=== PATIENT | male | born 1955 | race Caucasian/White ===

== ENCOUNTER 2017-01-23 23:12 | Inpatient (IN) ==
--- NOTE | 2017-01-23 23:41 | Emergency Department Report ---
Lower Extremity Injury HPI - General Chief Complaint: Extremity Injury, Lower Stated Complaint: Fall/L Ankle Injury Time Seen by Provider: 01/23/17 23:40 Source: patient Mode of arrival: ambulatory Limitations: no limitations - History of Present Illness HPI Narrative: Patient presents to the ED for evaluation of bilateral ankle pain and swelling, L > R, that began after he fell down the stairs about an hour ago. Pt states he was carrying a child downstairs and tripped, twisting both ankles in the process. He sustained a left ankle inversion injury and right ankle eversion injury. Pt can bear weight on his right ankle, but is unable to bear any weight on the left ankle. Treatments prior to arrival: NSAIDS - Related Data Home Medications Medication Instructions Recorded Confirmed Omeprazole 40 mg PO DAILY 01/24/17 01/24/17 Simvastatin 20 mg PO DAILY 01/24/17 01/24/17 Allergies Allergy/AdvReac Type Severity Reaction Status Date / Time No Known Allergies Allergy Verified 01/24/17 00:25 Review of Systems All systems: reviewed and negative except as stated PFS Patient Stated Medical History Gastroesophageal Reflux Yes Disease HLD GERD Surgical History: colonoscopy - Social History Smoking status: Never smoker Substance use type: does not use Alcohol intake frequency: does not drink Physical Exam - Limitations Limitations: no limitations - General General appearance: alert, in no apparent distress - Normal Exams: Head:: Normocephalic without trauma Neck:: Full range of motion, without adenopathy, JVD, bruits or thyromegaly Chest/Respirations:: Clear all cee, with good airflow, and symmetry bilaterally Cardiovascular:: Regular rate and rhythm, without murmur or gallop, Pulses 2+ all extremities, capillary refill, <2 seconds all extremities Abdomen:: Bowel sounds positive, soft, non-tender, non-distended, no hepatosplenomegaly, masses or bruits noted Neurological:: Patient is alert, and oriented, cranial nerves, motor/sensory/ cerebellar, exams w/o gross deficits, to observation Psychiatric:: Patient exhibits, appropriate attention, emotion and affect - Expanded Lower Extremity Exam Ankle exam: Present: tenderness (Left ankle TTP over both lateral and medial malleolus. Right ankle TTP over lateral malleolus), tenderness over talofibular lig (left ankle), other (decreased ROM all planes in bilateral ankles. neurovascularly intact) 1 - large amount of edema 2 - moderate amount of edema Course Vital Signs Temperature 98.4 F 01/23/17 23:38 Pulse Rate 77 01/23/17 23:38 Respiratory Rate 20 01/23/17 23:38 Blood Pressure 130/86 01/23/17 23:38 Pulse Oximetry 94 01/23/17 23:38 Temperature 98.4 F 01/23/17 23:38 Pulse Rate 77 01/23/17 23:38 Respiratory Rate 20 01/23/17 23:38 Blood Pressure 130/86 01/23/17 23:38 Pulse Oximetry 94 01/23/17 23:38 Extremity Injury, Lower - MDM Narrative Medical decision making narrative: Pt declines medication for pain at this time. x-ray left ankle - distal fibular fracture with 3 mm displacement x-ray right ankle - distal fibula fracture with no displacement Case is discussed with carina Ziegler, we will admit the patient to Dr. Sahni's service, evaluation and possible surgical fixation in the morning. After evaluation and results, patient is accepting of pain medication at this time, given Dilaudid and Zofran IV Disposition Clinical Impression: Fracture of distal end of fibula Qualifiers: Encounter type: initial encounter Fracture type: closed Fracture morphology: other fracture Laterality: unspecified laterality Qualified Code(s): S82.839A - Other fracture of upper and lower end of unspecified fibula, initial encounter for closed fracture Fracture of distal fibula Qualifiers: Encounter type: initial encounter Fracture type: closed Fracture morphology: other fracture Laterality: unspecified laterality Qualified Code(s): S82.839A - Other fracture of upper and lower end of unspecified fibula, initial encounter for closed fracture Disposition: 02 To OBS [facility] [place] Condition: Improved Prescriptions: No Action Simvastatin 20 mg PO DAILY Omeprazole 40 mg PO DAILY Referrals: Kody Villalobos MD [Family Provider] - - Seen By: physician
[2017-01-24] MEDS ORDERED: HYDROMORPHONE 2 MG/ML INJECTION IVP PRN (00:38)
[2017-01-24] MEDS ORDERED: ONDANSETRON 4 MG/2 ML INJECTION IVP PRN ×3 (00:39→15:22)
[2017-01-24] MEDS: NS 1,000 ML IV SCH ×3 (01:45→15:41)
--- NOTE | 2017-01-24 08:11 | XRay Report ---
Indication: bilateral ankle rolled, pain, swelling PROCEDURE: XR ankle BI 2V: Encounter: Initial Comparison: None Findings: Right ankle: No acute fracture or dislocation. Moderate lateral soft tissue swelling. Evidence of old trauma to the medial malleolus mortise is symmetric and the talar dome intact. Left ankle spiral minimally displaced fracture of the distal fibula seen on the mortise view. No additional acute fracture. No dislocation.. Moderate lateral soft tissue swelling. Impression: Right ankle: No acute osseous abnormality. Left ankle: Closed post traumatic distal fibular fracture. .
--- NOTE | 2017-01-24 08:35 | Orthopedic History & Physical ---
Orthopedic HPI - HPI Comments Onur is very pleasant and healthy 61yo male who slipped on some steps last night at his home. He was carrying his 6yo child when he fell. He was able to bear wt on the right ankle but was unable to bear wt on the left. He was seen in ER and found to have a displaced fracture of the left distal fibula with some medial widening. The right ankle is painful, swollen and has some bruising present. CT of the ankle is pending this AM. 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 He is generally healthy, doesn't smoke and is very active. Takes some medicine for GERD prn. PFSH Patient Stated Medical History Gastroesophageal Reflux Yes Disease Surgical History: colonoscopy - Social History Smoking status: Never smoker Household members: spouse, children Current occupational status: employed Current occupation: Teacher at [employer]. Does patient use chewing tobacco?: No Review of Systems - Constitutional Constitutional: Absent: chills, fever(s) - EENT Ears, nose, mouth, throat: Absent: headaches, head injury - Cardiovascular Cardiovascular: Absent: chest pain, syncope - Respiratory Respiratory: Absent: cough, dyspnea - Gastrointestinal Gastrointestinal: Absent: abdominal pain - Musculoskeletal Musculoskeletal: Present: as per HPI - Integumentary/Breasts Integumentary: Present: wounds (Left hand was scratched by a cat 2-3 days ago. Cat checked for rabies and was neg.) - Neurological Neurological: Absent: numbness, weakness, tingling Medications Home Medications Medication Instructions Recorded Confirmed Type Omeprazole 40 mg PO DAILY 01/24/17 01/24/17 History Simvastatin 20 mg PO DAILY 01/24/17 01/24/17 History Allergies Allergy/AdvReac Type Severity Reaction Status Date / Time No Known Allergies Allergy Verified 01/24/17 00:25 Orthopedic Exam Vital signs: Temperature 98.4 F 01/24/17 01:16 Pulse Rate 77 01/24/17 01:16 Respiratory Rate 20 01/24/17 01:16 Blood Pressure 130/86 01/24/17 01:16 Pulse Oximetry 94 01/24/17 01:16 Oxygen Delivery Method Room Air - Constitutional General Appearance: Present: alert, no acute distress - Respiratory Exam Present: non-labored - Extremities Exam Present: pulses intact, normal capillary refill - Detailed Lower Extremity Exam Ankle: Bilateral swelling, Bilateral tenderness (Med and Lat on the right , Lat on the left.), Bilateral wound (Small abrasion lateral mallelous on the right. ) Foot/Toes: Bilateral normal inspection - Integumentary Exam Present: pink, warm, dry, bruising (Medial mallelous on right ankle.), other ( Small cat scratches on Left thumb. Volar and dorsal surfaces. Does not appear infected. No pain with ROM.) - Neurological Exam Present: intact to light touch, no deficits - Psychiatric Exam Present: alert, normal affect Orthopedic Assessment and Plan (1) Closed fracture of left distal fibula Status: Acute Qualifiers: Encounter type: initial encounter Assessment and Plan: The left ankle has a distal fibula fx with medial space widening. This is best treated with ORIF. I discussed the injury and surgical plan with Ruben. Dr Sahni will meet with him and discuss risk vs benefits and possible complications. Pt will need to be non wt bearing with this injury. Plan ORIF left ankle later today. The right ankle is swollen and has some bruising/tenderness. Xrays are questionably for fx. Will get CT of the right ankle this AM. Will do exam of this ankle when his is under anesthesia. Due to the fact he has multiple limbs / joints involved and will need surgical fixation of at least one, I will change him to inpatient status. (2) Acute right ankle pain Status: Acute (3) Fracture of distal fibula Status: Acute Qualifiers: Encounter type: initial encounter Fracture type: closed Fracture morphology: other fracture Laterality: unspecified laterality Qualified Code (s): S82.839A - Other fracture of upper and lower end of unspecified fibula, initial encounter for closed fracture Hospital Course Summary Disclaimer: The visit summary below is not to be considered part of the above Progress Note.
[2017-01-24 10:59] VITALS: BMI 25.5
[2017-01-24] MEDS: LR 1,000 ML IV SCH ×2 (11:13→14:53)
--- NOTE | 2017-01-24 11:18 | Anesthesia Preoperative Report ---
Anesthesia Preoperative Record - Date and Time Date: 01/24/17 Preoperative Diagnosis: Bilateral distal fibula fractures NPO Since Date: 01/23/17 NPO Since Time: 22:00 Allergies/Adverse Reactions: Allergies Allergy/AdvReac Type Severity Reaction Status Date / Time No Known Allergies Allergy Verified 01/24/17 00:25 - Vital Signs Vital Signs: Temperature 96.7 F L 01/24/17 08:00 Pulse Rate 61 01/24/17 08:00 Respiratory Rate 16 01/24/17 08:00 Blood Pressure 147/71 H 01/24/17 08:00 Pulse Oximetry 97 01/24/17 08:00 Height and Weight: Height 6 ft Weight 85.5 kg Body Mass Index 25.5 - Medications Inpatient Medications: Current Medications Hydromorphone HCl (Dilaudid) 0.5 mg IVP Q3H PRN PRN Reason: Pain Sodium Chloride (Normal Saline) 1,000 mls @ 75 mls/hr IV .[id number] JHON Last Infusion: 01/24/17 11:14 Dose: Infused Lactated Ringer's (Lactated Ringers) 1,000 mls @ 50 mls/hr IV .Q20H JHON Last Admin: 01/24/17 11:13 Dose: 50 mls/hr Ondansetron HCl (Zofran) 4 mg IVP Q6H PRN PRN Reason: Nausea &/or vomiting Home Medications: Home Medications Medication Instructions Recorded Confirmed Type Omeprazole 40 mg PO DAILY 01/24/17 01/24/17 History Simvastatin 20 mg PO DAILY 01/24/17 01/24/17 History Is Patient on Beta Bharti?: No - Medical History Respiratory: DENIES: Asthma, Sleep Apnea Cardiovascular: DENIES: Abnormal EKG, Angina, Coronary Artery Disease, Heart Murmur, Hypertension Gastrointestional: DENIES: Gastroesophageal Reflux Disease Renal/Endocrine: DENIES: Diabetes Mellitus Type 2 Other History: DENIES: Anesthesia Reactions - Social History Smoking Status: Never smoker Hx Chewing Tobacco Use: No Substance Use Type: does not use - Pertinent Findings EKG Rhythm: Normal Sinus Rhythm - Physical Exam Respiratory Exam: Present: lungs clear Cardiovascular Exam: Present: regular rate and rhythm - Airway Assessment Mallampati Score: II TMD: 3 Fingerbreadths Neck Extension: good Overall Assessment: no airway concerns - ASA ASA Score: 2 - Plan Anesthesia: General TIVA, Regional Block Peripheral Nerve Block: Popliteal-Left - Discussion Discussion: Discussed risks/options/alternatives of anesthesia and questions answered. Patient consents. Nursing pain assessment noted. Attestation Statement: Prior to the delivery of any anesthetic medication, I examined the patient, developed the plan, obtained the patient's consent and discussed the risk and benefits of the procedure with the patient/guardian. - Additional Information Seen by Anesthesia: Yes
[2017-01-24] MEDS ORDERED: MIDAZOLAM 2mg/2ml INJECTION IVP ONE (11:22)
[2017-01-24] MEDS ORDERED: FentaNYL 100 MCG/2 ML INJECTION IVP PRN (11:24)
[2017-01-24] MEDS ORDERED: ROPIVACAINE 0.5% (5mg/ml) 30ml INJ ONE (11:31)
--- NOTE | 2017-01-24 11:58 | Anesthesia Procedure Note ---
Peripheral Nerve Blockade - Procedure Physician: Asael Sahni MD Date: 01/24/17 Surgical Procedure: Left ankle ORIF Discussion: Discussed risks/options/alternatives of anesthesia and questions answered. Patient consents. Nursing pain assessment noted. Block Start: 11:43 Block Stop: 11:48 Blocked Employed: [employer] Indication: Post-Operative Pain Approach: Left Side Confirmed Position: RLD Patient: Consent, Risks/Benefits Discussed, Informed, Post Block Act. Discussed IV Sedation: Yes Midazolam (mg): 2 Fentanyl (mg): 50 Initial Vital Signs: Temperature 98.4 F 01/23/17 23:38 Temperature Source Oral 01/23/17 23:38 Sepsis Recent Fever Within 48 Hours No 01/23/17 23:38 Sepsis Suspicion of Infection No 01/23/17 23:38 Sepsis New/Unexplained Change in Mental Status No 01/23/17 23:38 Sepsis Score/Level No Definite Risk 01/23/17 23:38 Sepsis Action Taken by Nursing No Action 01/23/17 23:38 Pulse Rate 77 01/23/17 23:38 Pulse Rhythm 01/23/17 23:38 Respiratory Rate 20 01/23/17 23:38 Respiratory Depth Normal 01/23/17 23:38 Blood Pressure 130/86 01/23/17 23:38 Blood Pressure Mean 100 01/23/17 23:38 Blood Pressure Position Sitting 01/23/17 23:38 Pulse Oximetry 94 01/23/17 23:38 Oxygen Delivery Method 01/23/17 23:38 Post Vital Signs: Temperature 98.3 F 01/24/17 10:50 Pulse Rate 61 01/24/17 10:50 Respiratory Rate 10 01/24/17 10:50 Blood Pressure 145/70 H 01/24/17 10:50 Pulse Oximetry 97 01/24/17 10:50 Oxygen Delivery Method Room Air Initial Pain Pain Score: 8 Post Block Pain Score: 2 Prep: Chlorhexadine/ETOH Ultrasound Used?: Yes - Injectate Ropivacaine (%): 0.5 Ropivacaine (mL): 30 Was Epi 1:200,000 Used?: No Injection: Injection made incrementally with constant monitoring and aspiration every ml
[2017-01-24] MEDS ORDERED: LIDOCAINE 1% (10mg/ml) 30ml SDV INJ ONE (12:27)
[2017-01-24] MEDS ORDERED: FentaNYL 100 MCG/2 ML INJECTION ONE (12:46)
[2017-01-24] MEDS ORDERED: MIDAZOLAM 2mg/2ml INJECTION ONE (12:47)
[2017-01-24] MEDS ORDERED: LIDOCAINE 2% (100mg/5mL) PF 5ml vl ONE (12:47)
[2017-01-24] MEDS ORDERED: PROPOFOL 500 MG/50 ML VIAL IV ONE (12:47)
[2017-01-24] MEDS ORDERED: KETAMINE 500 MG/10 ML INJECTION ONE (12:47)
--- NOTE | 2017-01-24 12:51 | CT Scan Report ---
Indication: Fall with Right ankle injury, evaluate for fracture PROCEDURE: CT ankle RT wo con: Encounter: Initial Comparison: None Technique: Axial CT images were performed through the right ankle without intravenous contrast. Coronal and sagittal two-dimensional reformats. Three-dimensional surface shaded volume rendered imaging was also created and reviewed. Automated Exposure Control and Iterative Reconstruction dose reducing techniques were utilized. Findings: No acute fracture identified. There is a prominent well-corticated ossicle beneath the distal fibula measuring 2.4 x 0.8 cm in dimension on sagittal image #25. This does not appear to represent an acute fracture fragment and likely represents sequela of prior distal fibular avulsion fracture. There are smaller corticated ossicles beneath the medial and lateral malleoli also consistent with old trauma. Ankle mortise appears symmetric. The talar dome is intact. Small osteophytes noted along the anterior margin of the tibia at the tibiotalar joint. Incidental note is made of an os peroneus. Soft tissue windows show no acute findings. No evidence of hematoma or fluid collection. Impression: No acute fracture. Evidence of old trauma. .
[2017-01-24] MEDS ORDERED: CEFAZOLIN 1 G INJECTION ONE (13:29)
[2017-01-24] MEDS ORDERED: CEFAZOLIN 1 G INJECTION IVP ONE (13:44)
[2017-01-24] MEDS ORDERED: MORPHINE SULFATE 10 MG/ML VIAL IVP PRN ×2 (14:21→15:22)
[2017-01-24] MEDS ORDERED: DEXAMETHASONE 4 MG/ML INJECTION IVP PRN (14:21)
--- NOTE | 2017-01-24 14:45 | Anesthesia Postoperative Note ---
- Date and Time Date: 01/24/17 Time: 14:45 - Status Patient Participated in Evaluation: Patient Participated in Person Vital Signs: Temperature 98.3 F 01/24/17 10:50 Pulse Rate 62 01/24/17 12:40 Respiratory Rate 17 01/24/17 12:40 Blood Pressure 124/59 01/24/17 12:40 Pulse Oximetry 97 01/24/17 12:40 Oxygen Delivery Method Nasal Cannula Oxygen Flow Rate 2 Respiratory Function: Airway Patent Cardiovascular Function: Regular Pulse EKG Rhythm: Normal Sinus Rhythm Mental Status: Alert and Oriented Pain Intensity: 0 Hydration: IV Infusing Complications During Recover: None Apparent - Follow-Up Instructions Instructions: Per Surgeon
[2017-01-24] MEDS: BUPIV 0.25% 30ml/LIDO 1% 30ml MIXTURE ID ONE ×2 (14:54→15:37)
[2017-01-24] MEDS ORDERED: SENNA + DOCUSATE TABLET PO PRN (15:22)
[2017-01-24] MEDS ORDERED: HYDROCODONE/APAP 7.5 MG/325 MG TABLET PO PRN (15:22)
--- NOTE | 2017-01-24 15:23 | Remote Fluorsocopy Report ---
Indication: ORIF LEFT ANKLE PROCEDURE: RF ankle LT 3 view: Encounter: Initial Comparison: Ankle radiographs dated January 23, 2017 Findings: Eight fluoroscopic spot images are submitted for interpretation. Images show open reduction and internal fixation of the distal fibular fracture with placement of a lateral fixation plate and multiple screws. Impression: Fluoroscopy as above. Fluoroscopy time is 27 seconds. Fluoroscopy dose is 91.9 mRad. .
--- NOTE | 2017-01-24 15:26 | Remote Fluorsocopy Report ---
Indication: EVAL RT ANKLE PROCEDURE: RF ankle RT 3 view: Encounter: Initial Comparison: Right ankle CT from the same date Findings: Three fluoroscopic spot images show AP, mortise and lateral projections of the right ankle. Impression: Fluoroscopy as above. Fluoroscopy time is 27 seconds. Fluoroscopy dose is 91.9 mRad. .
--- NOTE | 2017-01-24 15:42 | Operative Note ---
- Procedure Date of Admission: 01/24/17 Preoperative Diagnosis: other (left Combs B distal fibula fracture, right ankle pain) Postoperative Diagnosis: Same as preoperative diagnosis. Operation: #1 open reduction internal fixation of left distal fibula fracture #2 exam under anesthesia right ankle Surgeon: Marcus Sahni MD Junior Recruiter: None Complications: None. Anesthesia: General Inhalation Gases Peripheral Nerve Block: Popliteal-Left Estimated Blood Loss: See Anesthesia Record. Fluids: Please see Anesthesia Record. Description of Procedure: Mr. Miranda in both of his ankles were identified and marked in the preoperative holding area. He was brought back to the operating suite after about 2 blocks placed into his left side. He is placed supine on the operating table. He was then placed under general anesthesia. Left lower extremity was prepped and draped in my normal sterile fashion. Timeout was performed. Fluoroscopic imaging was used throughout the case. Leg was exsanguinated and the tourniquet inflated 250 mmHg. A lateral posterior distal fibula was performed sharply. Fracture site was quickly identified was a short oblique fracture. Fracture hematoma was removed. I was unable to reduce the fracture site and held reduced with a [id number] reduction clamp. A lag screw was placed from anterior to posterior did achieve an excellent bite. I then selected a distal fibular locking plate. The first screw was placed in a nonlocking fashion. The remaining screws were placed in locking fashion. Multiple fluoroscopic images were taken to ensure good hardware placement and fracture reduction. His ankle was stable with external rotation stress. The wound was thoroughly irrigated before being closed in layers with 2-0 Vicryl and then 3-0 nylon in the skin. A sterile dressing was placed followed by a well -padded posterior slab and stirrup type splint. I then examined the right ankle under anesthesia using fluoroscopy. He did sublux anteriorly with an anterior stress. He also opened up laterally with inversion stress. The patient was allowed to awake from general anesthesia and taken the recovery room in the care of anesthesia. A boot was placed on his right side. He tolerated procedure well and there are no complications.
[2017-01-24] MEDS: NOZIN NASAL SWAB NAS SCH (15:43)
--- NOTE | 2017-01-24 16:29 | Discharge Summary ---
Orthopedic Discharge Info Date of admission: 01/24/17 08:48 Anticipated date of discharge: 01/25/17 Primary care physician: Kody Villalobos MD Attending Physician: Asael Sahni MD - Discharge Diagnosis (1) Closed fracture of left distal fibula Qualifiers: Encounter type: initial encounter Status: Acute (2) Acute right ankle pain Status: Acute (3) Fracture of distal fibula Qualifiers: Encounter type: initial encounter Fracture type: closed Fracture morphology: other fracture Laterality: unspecified laterality Qualified Code (s): S82.839A - Other fracture of upper and lower end of unspecified fibula, initial encounter for closed fracture Status: Acute - Procedures Procedures: ORIF left distal fibula 10/25/16 Orthopedic Discharge HPI - HPI Comments Onur is very pleasant and healthy 61yo male who slipped on some steps last night at his home. He was carrying his 6yo child when he fell. He was able to bear wt on the right ankle but was unable to bear wt on the left. He was seen in ER and found to have a displaced fracture of the left distal fibula with some medial widening. The right ankle is painful, swollen and has some bruising present. CT of the ankle is pending this AM. 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 He is generally healthy, doesn't smoke and is very active. Takes some medicine for GERD prn. Orthopedic Hospital Course Hospital course: 01/24/17 16:25 After appropriate preoperative clearance and signing of operative consent, the patient was given IV antibiotics, according to orthopedic protocol. The patient was taken to the operating room and underwent ORIF of the left distal fibula on 01/24/17. He also had evaluation of the right ankle under anesthesia.. Following surgery, antibiotics were discontinued less than 24 hours according to protocol. Aspirin was initiated and SCDs added for DVT prevention. Splint is in good condition. Pain control was obtained via multimodal approach. Bowel motivation addressed with scheduled and PRN medications. Mobilization was initiated through PT services. Discharge arrangements made by a collaborative effort between the patient and Case Management. Follow-up is scheduled on 02/05/17. . Discharge instructions given by orthopedic providers and nursing staff at discharge. Discharge condition was good. Ongoing care required?: No Discharge Plan - Med Rec/Dispo [place] Instructions: [facility] Fracture Instructions Additional Instructions: FOLLOW UP WITH MARQUEZ STRAUSS ON 02/05/17 @ 09:30AM Prescriptions: New Aspirin *EC* [Ecotrin] 325 mg PO BID #84 tablet Milk of Magnesia [Mom] 30 ml PO DAILY PRN udc PRN Reason: Constipation Hydrocodone/APAP 7.5/325 [[place] 7.5/325] 1 - 2 tab PO Q6H PRN #50 tablet PRN Reason: Pain Continue Simvastatin 20 mg PO DAILY Omeprazole 40 mg PO DAILY - Disposition 01 Discharged Home, Self-Care
[2017-01-24] MEDS: ASPIRIN *EC* 325 MG TABLET PO SCH (21:31)
[2017-01-24] MEDS: CEFAZOLIN 2 G in NS 100 ML IV SCH (21:32)
[2017-01-24] MEDS ORDERED: SIMVASTATIN 20 MG TABLET PO SCH (22:00)
[2017-01-25] MEDS: NOZIN NASAL SWAB NAS SCH ×2 (01:00→07:35)
[2017-01-25] MEDS: CEFAZOLIN 2 G in NS 100 ML IV SCH (01:01)
[2017-01-25 04:09] VITALS: O2SAT 96
[2017-01-25] MEDS: NS 1,000 ML IV SCH (05:38)
[2017-01-25] MEDS ORDERED: OMEPRAZOLE 20 MG CAPSULE PO SCH (06:30)
[2017-01-25 07:55] VITALS: BP 137/66; PULSE 65; RESP 16; TEMP 97.7
[2017-01-25] MEDS: ASPIRIN *EC* 325 MG TABLET PO SCH (08:29)
--- NOTE | 2017-01-25 10:32 | Discharge Instructions ---
Discharge Plan - Med Rec/Dispo [place] Instructions: [facility] Ortho Fracture Instructions Additional Instructions: FOLLOW UP WITH MARQUEZ STRAUSS ON 02/05/17 @ 09:30AM Prescriptions: New Aspirin *EC* [Ecotrin] 325 mg PO BID #84 tablet Milk of Magnesia [Mom] 30 ml PO DAILY PRN udc PRN Reason: Constipation Hydrocodone/APAP 7.5/325 [[place] 7.5/325] 1 - 2 tab PO Q6H PRN #50 tablet PRN Reason: Pain Continue Simvastatin 20 mg PO DAILY Omeprazole 40 mg PO DAILY Discharge Instructions/Outpatient Orders: Final Provider Discharge Instructions Location: Determined By Patient - Disposition 01 Discharged Home, Self-Care
== END 2017-01-25 12:29 | disposition home or self-care (01) | DRG 494 ==
LOC: ED 23:12 → SRG 23:12
PROVIDERS: ADMIT Orthopaedic Surgery; ATTEND Orthopaedic Surgery